=== PATIENT | male | born 1955 | race Caucasian/White ===

== ENCOUNTER 2017-07-02 18:09 | Inpatient (IN) | payer OTHER ==
[~2017-07-02] VITALS: Ht 185.4 cm; Wt 161.0 kg
[~2017-07-02 18:09] MED LIST: ALBU18HF2 IH; ASPI81TA2 PO; ATOR10TA PO; DIGO125T PO; DILT60TA19 PO; HYDR-3326 PO; IPRA12.9 IH; METF500T7 PO; METO25TA3 PO; RIVA10TA PO; TRAM50TA2 PO
--- NOTE | 2017-07-02 18:15 | NUR ---
C/O CHEST PAIN WITH SOB X 1 HOUR; ACHING, PIERCING PAIN 5/10, NAD NOTED, VSS, RESP EVEN AND UNLABORED. PUT ON MONITOR, WAITING FOR MD GROVER.
[2017-07-02 18:46] LABS: BASOPHILS # (AUTO) 0.4 /CMM (0.0-0.2); BASOPHILS % (AUTO) 4.2 % (0.0-2.0); EOSINOPHILS # (AUTO) 0.1 /CMM (0.0-0.7); EOSINOPHILS % (AUTO) 0.6 % (0.0-6.0); HEMATOCRIT 43 % (39-51); HEMOGLOBIN 14.1 g/dL (13.5-17.5); LYMPHOCYTES # (AUTO) 2.3 /CMM (0.8-4.8); LYMPHOCYTES % (AUTO) 22.9 % (20.0-44.0); MEAN CORPUSCULAR HEMOGLOBIN 30 PG (26.0-33.0); MEAN CORPUSCULAR HGB CONC 33 g/dl (31.0-36.0); MEAN CORPUSCULAR VOLUME 92 fL (80-96); MONOCYTES # (AUTO) 0.8 /CMM (0.1-1.30); MONOCYTES % (AUTO) 7.9 % (2.0-12.0); NEUTROPHILS # (AUTO) 6.6 /CMM (1.8-8.9); NEUTROPHILS % (AUTO) 64.4 % (43.0-81.0); PLATELET COUNT (AUTO) 260 /CMM (150-450); RDW COEFFICIENT OF VARIATION 13.6 (11.5-15.0); RED BLOOD CELL COUNT(AUTO) 4.72 MIL/uL (4.5-6.0); WHITE BLOOD COUNT (AUTO) 10.2 K/uL (4.3-11.0)
[2017-07-02 18:57] LABS: CALCIUM, SERUM 7.6 mg/dL (8.5-10.1); CARBON DIOXIDE 23 mmol/L (21-32); CHLORIDE 106 mmol/L (98-107); GLUCOSE 167 mg/dL (74-106); POTASSIUM 4.2 mmol/L (3.5-5.1); SODIUM SERUM 139 mmol/L (136-145); UREA NITROGEN, BLOOD 17 mg/dL (7-18)
[2017-07-02 19:05] LABS: TROPONIN I < 0.017 ng/mL (0.00-0.056)
[2017-07-02 19:10] LABS: B-TYPE NATRIURETIC PEPTIDE 1023 PG/ML (0-125)
--- NOTE | 2017-07-02 19:16 | NUR ---
ASSUMED CARE. PT ASLEEP, NO ACUTE DISTRESS NOTED, RESP EVEN AND UNLABORED. NO PAIN OR DISCOMFORT NOTED AT THIS TIME. PT ON CARDIAC MONITORING, CONTINUOUS POX. PENDING LAB RESULTS.
[2017-07-02 19:49] LABS: BAND % (MANUAL) 17 % (0.0-5.0); BASOPHILS % (MANUAL) 3 % (0.0-2.0); LYMPHOCYTES % (MANUAL) 21 % (16-48); MONOCYTES % (MANUAL) 9 % (0-11.0); NEUTROPHILS % (MANUAL) 50 (42-76)
[2017-07-02 20:00] VITALS: BP 148/81
--- NOTE | 2017-07-02 20:10 | NUR ---
TELE 117
[2017-07-02] MEDS ORDERED: DILTIAZEM HCL 25 MG IV ONE (20:21)
[2017-07-02] MEDS ORDERED: DILTIAZEM HCL 50 MG IV IV ONE (20:30)
--- NOTE | 2017-07-02 20:32 | NUR ---
PT AGITATED, VERBALLY ABUSIVE, KNOCKED OVER PAINTING TECHNICIAN. ASSISTED PT BACK TO BED, PLACED PT BACK ON CARDIAC MONITORING, CONTINUOUS POX. ER MD MADE AWARE.
--- NOTE | 2017-07-02 20:37 | NUR ---
ER TALKING TO DR. RAS MCALLISTER REGARDING PT ADMISSION.
[2017-07-02] MEDS ORDERED: HYDROCODONE/APAP 5/325MG 1 EACH TABLET PO PRN (21:00)
[2017-07-02] MEDS ORDERED: MAGNESIUM HYDROXIDE 30 ML UDC PO PRN ×2 (21:00→21:45)
[2017-07-02] MEDS ORDERED: MAG HYDROX/AL HYDROX/SIMETH 30 ML UDC PO PRN ×2 (21:00→21:45)
[2017-07-02] MEDS ORDERED: ALBUTEROL SULFATE 8 GM HFA.AER.AD IH PRN ×2 (21:00→21:45)
[2017-07-02] MEDS ORDERED: IPRATROPIUM BROMIDE 14 GM INHALER (or 12.9 GM) IH PRN ×2 (21:00→21:45)
[2017-07-02] MEDS ORDERED: ACETAMINOPHEN 325 MG TABLET PO PRN ×2 (21:00→21:45)
[2017-07-02] MEDS ORDERED: TRAMADOL HCL 50 MG TABLET PO PRN (21:00)
[2017-07-02] MEDS ORDERED: Z GUARD REMEDY 2 OZ OINT TP PRN ×2 (21:00→21:45)
[2017-07-02] MEDS ORDERED: ZOLPIDEM TARTRATE 5 MG TABLET PO PRN (21:00)
[2017-07-02] MEDS ORDERED: ONDANSETRON HCL/PF 4 MG/2 ML VIAL IVP PRN ×2 (21:00→21:45)
[2017-07-02] MEDS ORDERED: ENOXAPARIN SODIUM 40 MG/0.4 ML DISP.SYRIN SQ SCH ×2 (21:00→21:45)
--- NOTE | 2017-07-02 21:30 | NUR ---
CALLED DR. ABAD, ON THE PHONE WITH DR MCNEAL
--- NOTE | 2017-07-02 21:34 | NUR ---
REPORT CALLED TO DISTRICT MANAGER MAJOR ACCOUNTS SALESANATOLIY KUMAR. WILL TRANSPORT PT VIA [facility] [employer].
--- NOTE | 2017-07-02 21:45 | NUR ---
MANAGER STORAGE INITIAL NOTE [facility] PT AMBULATED TO BED SAFELY. A/O X3 AND ABLE TO MAKE NEEDS KNOWN. ON 2L OF O2 VIA NC AND SATURATING 99%. VS- BP 148/81, P 109, R 22, T 99.0 AND NO C/O CHEST PAIN OR DISCOMFORT AT THIS TIME. BREATHING REGULAR, EVEN AND UNLABORED. HEART, LUNG AND BOWEL SOUNDS AUSCULTATED. ORIENTED PT TO ROOM. CALL LIGHT WITHIN REACH AT ALL TIMES. AWAITING ORDERS FROM MD. WILL CONTINUE TO MONITOR.
[2017-07-02 22:40] VITALS: BP 148/88
[2017-07-02] MEDS ORDERED: ENOXAPARIN SODIUM 40 MG/0.4 ML DISP.SYRIN SQ ONE (23:06)
[2017-07-02] MEDS ORDERED: FUROSEMIDE 40 MG/4 ML VIAL ONE (23:07)
[2017-07-02] MEDS ORDERED: HYDROCODONE/APAP 5/325MG 1 EACH TABLET ONE (23:07)
[2017-07-02] MEDS: FUROSEMIDE 40 MG/4 ML VIAL IV SCH (23:14)
[2017-07-02] MEDS: HYDROCODONE/APAP 5/325MG 1 EACH TABLET PO PRN (23:14)
[2017-07-03] VITALS: BP 158/94
[2017-07-03] MEDS ORDERED: FUROSEMIDE 40 MG/4 ML VIAL IV SCH
[2017-07-03] MEDS ORDERED: TRAMADOL HCL 50 MG TABLET ONE (00:57)
[2017-07-03] MEDS ORDERED: ZOLPIDEM TARTRATE 5 MG TABLET ONE (00:57)
[2017-07-03] MEDS: ZOLPIDEM TARTRATE 5 MG TABLET PO PRN (00:58)
[2017-07-03] MEDS: TRAMADOL HCL 50 MG TABLET PO PRN ×3 (00:59→20:04)
--- NOTE | 2017-07-03 02:11 | NUR ---
PHOTOGRAPHER MODEL NOTE VERBAL ORDER FROM DR. MCGINNIS FOR LABS, ECG AND DIET. ORDERS READ BACK AND CARRIED OUT.
[2017-07-03 04:00] VITALS: BP 127/64
[2017-07-03] MEDS ORDERED: FUROSEMIDE 40 MG/4 ML VIAL ONE ×2 (05:26→05:27)
[2017-07-03] MEDS ORDERED: HYDROCODONE/APAP 5/325MG 1 EACH TABLET ONE (05:26)
--- NOTE | 2017-07-03 05:29 | NUR ---
RN NOTES FUROSEMIDE OVERRIDE PERFORMED X2 DUE TO FAILED 1ST ATTEMPT. WHEN 1ST OVERRIDE WAS PERFORMED, MEDICATION DOOR LOCKED AND WOULD NOT REOPEN SO ANOTHER OVERRIDE WAS PERFORMED, 1 VIAL TAKEN.
[2017-07-03] MEDS: FUROSEMIDE 40 MG/4 ML VIAL IV SCH ×3 (05:38→17:04)
[2017-07-03] MEDS: HYDROCODONE/APAP 5/325MG 1 EACH TABLET PO PRN ×3 (05:38→22:21)
--- NOTE | 2017-07-03 06:55 | NUR ---
SENIOR NET SOFTWARE DEVELOPER CLOSING NOTE PT REMAINED STABLE DURING SHIFT. NO ACUTE DISTRESS NOTED. ON ROOM AIR AND SATURATING WELL. C/O CHEST PAIN AT TIMES AND MANAGED WITH PAIN MEDICATIONS. KEPT CLEAN AND DRY. PER PT REQUEST, ATTACHED A CONDOM CATHETER TO PREVENT SOILING OF BED. ALL DUE MEDS GIVEN ORDERED AND WELL TOLERATED. CALL LIGHT WITHIN REACH AT ALL TIMES. WILL ENDORSE TO NEXT SHIFT CONTINUITY OF CARE.
[2017-07-03 07:01] LABS: BASOPHILS # (AUTO) 0.1 /CMM (0.0-0.2); BASOPHILS % (AUTO) 0.8 % (0.0-2.0); EOSINOPHILS # (AUTO) 0.2 /CMM (0.0-0.7); EOSINOPHILS % (AUTO) 1.6 % (0.0-6.0); HEMATOCRIT 43 % (39-51); HEMOGLOBIN 14.8 g/dL (13.5-17.5); LYMPHOCYTES # (AUTO) 1.4 /CMM (0.8-4.8); LYMPHOCYTES % (AUTO) 14.7 % (20.0-44.0); MEAN CORPUSCULAR HEMOGLOBIN 31 PG (26.0-33.0); MEAN CORPUSCULAR HGB CONC 34 g/dl (31.0-36.0); MEAN CORPUSCULAR VOLUME 91 fL (80-96); MONOCYTES # (AUTO) 0.7 /CMM (0.1-1.30); MONOCYTES % (AUTO) 7.7 % (2.0-12.0); NEUTROPHILS # (AUTO) 7.2 /CMM (1.8-8.9); NEUTROPHILS % (AUTO) 75.2 % (43.0-81.0); PLATELET COUNT (AUTO) 206 /CMM (150-450); RED BLOOD CELL COUNT(AUTO) 4.75 MIL/uL (4.5-6.0); WHITE BLOOD COUNT (AUTO) 9.6 K/uL (4.3-11.0)
[2017-07-03 07:20] LABS: CALCIUM, SERUM 8.1 mg/dL (8.5-10.1); CREATININE 0.9 mg/dL (0.6-1.3); MAGNESIUM 1.6 mg/dL (1.8-2.4); PHOSPHORUS 2.1 mg/dL (2.5-4.9); POTASSIUM 3.4 mmol/L (3.5-5.1)
[2017-07-03] MEDS ORDERED: PANTOPRAZOLE 40 MG TABLET.DR PO SCH (07:30)
[2017-07-03 07:31] LABS: THYROID STIMULATING HORMONE 1.594 uIU/mL (0.358-3.74)
[2017-07-03 08:00] VITALS: BP 147/78
--- NOTE | 2017-07-03 08:20 | NUR ---
RN NOTES PT SAID HIS CONDOM CATH WAS OUT, WENT TO CHECK, CONDOM CATH NOT IN PLACE. PT REFUSED SNEED CATH. PT EDUCATION PROVIDED. PT INFORMED OUTPUT NEEDS TO BE MONITORED SINCE HE IS ON DIURETICS. PT STILL REFUSED FC AND WANTS CONDOM CATH. PLACED A NEW CONDOM CATH, ADVISED PT TO AVOID SUDDEN MOVEMENT SO CATHETER WILL NOT COME OFF. PT VERBALIZED UNDERSTANDING
[2017-07-03] MEDS: PANTOPRAZOLE 40 MG TABLET.DR PO SCH (08:37)
[2017-07-03] MEDS ORDERED: METFORMIN XR 500 MG TAB.SR.24H PO SCH (09:00)
[2017-07-03] MEDS ORDERED: DIGOXIN 0.125 MG TABLET PO SCH ×2 (09:00)
[2017-07-03] MEDS ORDERED: ASPIRIN 81 MG TAB.CHEW PO SCH ×2 (09:00)
--- NOTE | 2017-07-03 10:25 | NUR ---
RN NOTES DR GONZALEZ AT BEDSIDE, PT WAS SEEN AND EVALUATED. MD INFORMED PT HR IS A FIB UNCONTROLLED 130'S RIGHT NOW, PER MD PT WILL BE STARTED ON CARDIZEM PO. ALSO PT NOTED CONDOM CATH PULLED OUT AGAIN, PER MD NO NEED TO REINSERT. PT CAN USE URINAL.
[2017-07-03] MEDS: Magnesium 1GM/D5W 100ML PREMIX 100 ML IV SCH ×2 (11:40→13:04)
[2017-07-03 12:00] VITALS: BP 169/97
[2017-07-03] MEDS ORDERED: METF10002 PO (12:59)
[2017-07-03] MEDS ORDERED: NEUTRA PHOS 1 POWD.PACKET PO ONE (13:00)
[2017-07-03] MEDS ORDERED: Magnesium 1GM/D5W 100ML PREMIX 100 ML IV ONE (13:02)
[2017-07-03] MEDS: POTASSIUM CL. PREMIX PERIPHER. 50 ML IV SCH ×2 (13:04→14:14)
[2017-07-03] MEDS ORDERED: APIX5TAB PO (14:59)
[2017-07-03 16:00] VITALS: BP 139/80
[2017-07-03] MEDS ORDERED: DIGOXIN 0.125 MG TABLET PO ONE (16:49)
[2017-07-03] MEDS ORDERED: METFORMIN 500 MG TABLET PO SCH (17:00)
[2017-07-03] MEDS ORDERED: RIVAROXABAN 10 MG TABLET PO SCH ×2 (17:00)
[2017-07-03] MEDS: ATORVASTATIN 10 MG TABLET PO SCH (17:04)
[2017-07-03] MEDS: APIXABAN 5 MG TABLET PO SCH (17:04)
[2017-07-03] MEDS ORDERED: ATORVASTATIN 10 MG TABLET PO SCH (18:00)
--- NOTE | 2017-07-03 19:35 | NUR ---
RN NOTES RECEIVED PT AWAKE SITTING ON BED. 10X4 ABLE TO VERBALIZED NEEDS. NO ACUTE RESP DISTRESS. SATING 98% IN RA. A- FIB UNCONTROLLED HR 120'S WARMTH TO TOUCH. AFEBRILE. ASKING FOR PAIN MEDICINE DUE TO CHEST PAIN AT SCALE OF 6/10 PER PATIENT HE GOT PAIN MEDICINE 4 HOURS AGO PAIN DECREASED BUT HE STILL FEELS IT. IV SITE ON LEFT HAND G 20 INTACT AND PATENT. EDUCATED REGARDING PLAN OF CARE. PT VERBALIZED UNDERSTANDING. PT CONTINUE TO ENCOURAGED TO USED URINAL FOR BLADDER. PT AMBULATES. CALL LIGHT KEPT WITHIN EASY REACH REINSTRUCTED TO USED WHEN NEEDED. ALL NEEDS ATTENDED. WILL MONITORED FREQUENTLY.
[2017-07-03] MEDS: IPRATROPIUM NEB FS 0.5 MG/2.5 ML AMPUL.NEB NEB PRN (20:17)
[2017-07-03] MEDS: CARVEDILOL 6.25 MG TABLET PO SCH (20:44)
[2017-07-03 20:56] VITALS: BP 142/100
[2017-07-04] VITALS: BP 143/78
[2017-07-04] MEDS: FUROSEMIDE 40 MG/4 ML VIAL IV SCH ×4 (00:12→16:24)
[2017-07-04] MEDS: TRAMADOL HCL 50 MG TABLET PO PRN ×3 (02:03→16:22)
[2017-07-04 04:00] VITALS: BP 143/78
[2017-07-04] MEDS ORDERED: DIGOXIN 0.125 MG TABLET PO ONE ×2 (06:00)
--- NOTE | 2017-07-04 06:29 | NUR ---
RN NOTES PATIENT MAINTAINED WITH ADEQUATE AMOUNT OF OUTPUT. NO SIGNIFICANT CHANGE OF CONDITION THROUGHOUT THE SHIFT. PAIN MEDICINE GIVEN PATIENT REQUEST DUE TO EPISODE OF CHEST PAIN WHEN AWAKE. NOTED PATIENT SWEATING A LOT THAT CAUSING TELE MONITOR LEADS TO REMOVE MORE OFTEN.BS 144 MG/DL. ALL NEEDS ATTENDED. ALL DUE MEDICINE TOLERATED WELL. KEPT CLEAN AND DRY WILL ENDORSED CONTINUITY OF CARE TO AM NURSE.
--- NOTE | 2017-07-04 07:20 | NUR ---
RN NOTES RECV'D REPORT FROM KEVIN RN. PT A&OX3. SITTING AT SIDE OF BED DRINKING WATER. NORMAL RESP. APPEARS CALM AND RELAXED. HOSPITALIZED 07/02 FOR SOB AND CP SECONDARY TO CHF X 10 YRS. BNP >1000 ON ADM NOW 900'S. AFIB ONE TEENS. XARELTO. DR. SILVA CARDIO CONSULT. DIG, COREG. CM PLACEMENT. DENIES CP AT PRESENT. KEVIN RN HAD GIVEN PAIN MEDS. TROPS NEG. COPD HX. OBESE. AMBULATORY. GOOD APPETITE. VOIDS. SKIN INTACT. LH20G SL. BED IN LOW LOCKED POISTION. SIDE RAILS UP X2. CALL LIGHT IN REACH. WILL CONT TO MONITOR.
[2017-07-04 07:43] LABS: CALCIUM, SERUM 8.2 mg/dL (8.5-10.1); PHOSPHORUS 3.6 mg/dL (2.5-4.9); POTASSIUM 3.6 mmol/L (3.5-5.1)
[2017-07-04 08:00] VITALS: BP 130/95
[2017-07-04] MEDS: PANTOPRAZOLE 40 MG TABLET.DR PO SCH (08:14)
[2017-07-04] MEDS: APIXABAN 5 MG TABLET PO SCH ×2 (08:14→16:22)
[2017-07-04] MEDS: CARVEDILOL 6.25 MG TABLET PO SCH ×2 (08:14→21:01)
[2017-07-04] MEDS: IPRATROPIUM NEB FS 0.5 MG/2.5 ML AMPUL.NEB NEB PRN ×3 (08:50→22:25)
[2017-07-04 12:00] VITALS: BP 128/82
[2017-07-04] MEDS: HYDROCODONE/APAP 5/325MG 1 EACH TABLET PO PRN ×2 (12:55→21:01)
[2017-07-04] MEDS: SENNOSIDES/DOCUSATE SODIUM 1 TAB TABLET PO SCH (13:01)
[2017-07-04 16:00] VITALS: BP 142/92
[2017-07-04] MEDS: ATORVASTATIN 10 MG TABLET PO SCH (16:23)
[2017-07-04] MEDS: ALBUTEROL FS 2.5 MG/3 ML VIAL.NEB NEB PRN ×2 (17:04→22:25)
--- NOTE | 2017-07-04 17:54 | NUR ---
RN NOTES PT A&OX3. HOB ELEVATED. NORMAL RESP 3LNC. APPEARS CALM AND RELAXED. AFIB 80-100. ELIQUIS. DR. SILVA CARDIO CONSULT. DIG, COREG. CM PLACEMENT. DENIES CP AT PRESENT. PAIN MEDS GIVEN FOR 5/10 LEFT CHEST WALL PAIN. TROPS NEG. RT TX FOR COPD. AMBULATORY. GOOD APPETITE. VOIDS. SKIN INTACT. LH20G SL. 1100 OUT/ 500 IN. BED IN LOW LOCKED POSITION. SIDE RAILS UP X2. CALL LIGHT IN REACH. WILL CONT TO MONITOR AND ENDORSE TO NOC RN.
--- NOTE | 2017-07-04 19:15 | NUR ---
RN NOTES PATIENT AWAKE AOX4 ON BED. ABLE TO MAKE KNOWN NEEDS. WITH CLEAR BREATH SOUNDS. BREATHING EVEN AND UNLABORED WITH O2 3LPM VIA NC. TELE MONITOR REVEALS A- FIB HR 97. DENIES CHEST PAIN AT THIS TIME. IV SITE ON LEFT HAND G20 INTACT AND PATENT. AMBULATORY. PER PREVIOUS NURSE TO TRANSFER PATIENT TO ISOLATION ROOM DUE TO POSITIVE FOR MRSA NARES. PATIENT WILL BE TRANSFER TO ROOM 103. PATIENT MADE AWARE EDUCATED REGARDING THE INFECTION. ABLE TO USED URINAL. KEPT CLEAN AND DRY ALL NEEDS ATTENDED CALL LIGHT KEPT WITHIN EASY REACH REMINDED TO USED WHEN NEED HELP/ASSISTANCE. WILL CONTINUE TO MONITOR.
[2017-07-04 20:00] VITALS: BP 120/83
--- NOTE | 2017-07-04 22:00 | NUR ---
RN NOTES TRANSFER PATIENT FROM ROOM 117-2 TO ROOM 103
[2017-07-05] VITALS: BP 134/74
[2017-07-05 04:00] VITALS: BP 116/71
[2017-07-05] MEDS: HYDROCODONE/APAP 5/325MG 1 EACH TABLET PO PRN ×2 (05:49→11:55)
--- NOTE | 2017-07-05 06:42 | NUR ---
RN NOTES PATIENT IN STABLE CONDITION NO COMPLAIN OF CHEST PAIN. NO ACUTE RESP DISTRESS. AFEBRILE. TELE MONITOR REVEALS A-FIB CONTROLLED LAST HR 71. IV SITE INTACT AND PATENT. AMBULATE WITHOUT SOB . WITH GOOD AMOUNT URINE OUTPUT. PT ASLEEP WELL AT NIGHT. KEPT PT CLEAN AND COMFORTABLE IN BED. CALL LIGHT KEPT WITHIN EASY REACH. NEEDS ATTENDED PROMPTLY. WILL ENDORSED CONTINUITY OF CARE TO AM NURSE.
[2017-07-05 06:47] LABS: HEMOGLOBIN 14.9 g/dL (13.5-17.5); RED BLOOD CELL COUNT(AUTO) 4.82 MIL/uL (4.5-6.0); WHITE BLOOD COUNT (AUTO) 7.7 K/uL (4.3-11.0)
[2017-07-05 06:48] LABS: BASOPHILS % (AUTO) 0.5 % (0.0-2.0); EOSINOPHILS # (AUTO) 0.4 /CMM (0.0-0.7); EOSINOPHILS % (AUTO) 5.3 % (0.0-6.0); HEMATOCRIT 44 % (39-51); LYMPHOCYTES # (AUTO) 1.4 /CMM (0.8-4.8); LYMPHOCYTES % (AUTO) 18.7 % (20.0-44.0); MEAN CORPUSCULAR HEMOGLOBIN 31 PG (26.0-33.0); MEAN CORPUSCULAR HGB CONC 34 g/dl (31.0-36.0); MEAN CORPUSCULAR VOLUME 91 fL (80-96); MONOCYTES # (AUTO) 0.5 /CMM (0.1-1.30); MONOCYTES % (AUTO) 6.1 % (2.0-12.0); NEUTROPHILS # (AUTO) 5.4 /CMM (1.8-8.9); NEUTROPHILS % (AUTO) 69.4 % (43.0-81.0); PLATELET COUNT (AUTO) 182 /CMM (150-450); RDW COEFFICIENT OF VARIATION 14.1 (11.5-15.0)
[2017-07-05 06:56] LABS: CALCIUM, SERUM 8.6 mg/dL (8.5-10.1); MAGNESIUM 1.8 mg/dL (1.8-2.4); PHOSPHORUS 4.5 mg/dL (2.5-4.9); POTASSIUM 3.5 mmol/L (3.5-5.1)
[2017-07-05 08:00] VITALS: BP 104/67
[2017-07-05] MEDS: IPRATROPIUM NEB FS 0.5 MG/2.5 ML AMPUL.NEB NEB PRN ×2 (08:35→15:43)
[2017-07-05] MEDS: ALBUTEROL FS 2.5 MG/3 ML VIAL.NEB NEB PRN ×2 (08:35→15:43)
[2017-07-05] MEDS: PANTOPRAZOLE 40 MG TABLET.DR PO SCH (08:47)
[2017-07-05] MEDS: FUROSEMIDE 40 MG/4 ML VIAL IV SCH ×2 (08:48→16:37)
[2017-07-05] MEDS: SENNOSIDES/DOCUSATE SODIUM 1 TAB TABLET PO SCH (08:49)
[2017-07-05] MEDS: CARVEDILOL 6.25 MG TABLET PO SCH ×2 (08:49→20:15)
[2017-07-05] MEDS: TRAMADOL HCL 50 MG TABLET PO PRN (08:52)
[2017-07-05] MEDS: APIXABAN 5 MG TABLET PO SCH ×2 (09:01→16:37)
[2017-07-05 12:00] VITALS: BP 132/80
[2017-07-05] MEDS: DIGOXIN 0.125 MG TABLET PO SCH (14:17)
[2017-07-05 16:00] VITALS: BP 118/72
[2017-07-05] MEDS: ATORVASTATIN 10 MG TABLET PO SCH (16:37)
--- NOTE | 2017-07-05 19:05 | NUR ---
RN OPENING NOTES RECEIVED REPORT FROM AM RN. PATIENT A/A/O X4, ABLE TO MAKE NEEDS KNOWN. BREATHING EVEN & UNLABORED, ON O2 3L VIA NC. DENIES SOB OR DIFFICULTY BREATHING. PULSES PRESENT. LEFT HAND IV #20 PATENT W/ DRESSING CDI & ON SALINE LOCK. DENIES ANY CHEST PAIN OR DISCOMFORT @ THIS TIME. SAFETY MEASURES IN PLACE W/ SIDE RAILS UP, BED LOCKED IN LOWEST POSITION & CALL LIGHT WITHIN REACH.
[2017-07-05 20:00] VITALS: BP 111/60
[2017-07-05] MEDS: MUPIROCIN OINT 2% 22 GM TUBE SCH (20:14)
[2017-07-06] MEDS: HYDROCODONE/APAP 5/325MG 1 EACH TABLET PO PRN ×4 (00:53→22:23)
[2017-07-06] MEDS: ZOLPIDEM TARTRATE 5 MG TABLET PO PRN (03:20)
[2017-07-06 04:00] VITALS: BP 143/90
--- NOTE | 2017-07-06 07:15 | NUR ---
MS RN OPENING RECEIVED PATIENT A/OX4 DENIES SOB, DIFFICULTY BREATHING OR PAIN AT THIS TIME. ALL NEEDS IN REACH. PATIENT ON 3LPM NC TOLERATING WELL. NO COMPLAINTS AT THIS TIME. CALL LIGHT IN REACH, BED LOWERED AND LOCKED, RAILS UPX3 FOR SAFETY AND WILL ROUND Q2H OR LESS PER NEEDS
[2017-07-06 07:21] LABS: BASOPHILS # (AUTO) 0.1 /CMM (0.0-0.2); BASOPHILS % (AUTO) 0.7 % (0.0-2.0); EOSINOPHILS # (AUTO) 0.5 /CMM (0.0-0.7); HEMATOCRIT 46 % (39-51); HEMOGLOBIN 15.5 g/dL (13.5-17.5); LYMPHOCYTES # (AUTO) 1.6 /CMM (0.8-4.8); LYMPHOCYTES % (AUTO) 17.4 % (20.0-44.0); MEAN CORPUSCULAR HEMOGLOBIN 31 PG (26.0-33.0); MEAN CORPUSCULAR HGB CONC 34 g/dl (31.0-36.0); MEAN CORPUSCULAR VOLUME 91 fL (80-96); MONOCYTES # (AUTO) 0.7 /CMM (0.1-1.30); NEUTROPHILS # (AUTO) 6.3 /CMM (1.8-8.9); NEUTROPHILS % (AUTO) 68.9 % (43.0-81.0); PLATELET COUNT (AUTO) 192 /CMM (150-450); RDW COEFFICIENT OF VARIATION 14.2 (11.5-15.0); RED BLOOD CELL COUNT(AUTO) 5.03 MIL/uL (4.5-6.0); WHITE BLOOD COUNT (AUTO) 9.2 K/uL (4.3-11.0)
[2017-07-06 07:32] LABS: CALCIUM, SERUM 8.9 mg/dL (8.5-10.1); CREATININE 1.1 mg/dL (0.6-1.3); MAGNESIUM 1.8 mg/dL (1.8-2.4); PHOSPHORUS 3.7 mg/dL (2.5-4.9); POTASSIUM 3.5 mmol/L (3.5-5.1)
[2017-07-06 08:00] VITALS: BP 141/89
[2017-07-06] MEDS: APIXABAN 5 MG TABLET PO SCH ×2 (09:23→16:17)
[2017-07-06] MEDS: FUROSEMIDE 40 MG/4 ML VIAL IV SCH ×2 (09:23→16:17)
[2017-07-06] MEDS: SENNOSIDES/DOCUSATE SODIUM 1 TAB TABLET PO SCH (09:23)
[2017-07-06] MEDS: CARVEDILOL 6.25 MG TABLET PO SCH ×2 (09:23→20:56)
[2017-07-06] MEDS: MUPIROCIN OINT 2% 22 GM TUBE SCH ×2 (09:24→21:08)
[2017-07-06] MEDS: PANTOPRAZOLE 40 MG TABLET.DR PO SCH (09:24)
[2017-07-06] MEDS: DIGOXIN 0.125 MG TABLET PO SCH (12:36)
[2017-07-06 16:00] VITALS: BP_SYST 143; BP_SYST 144; BP_DIAS 77
--- NOTE | 2017-07-06 16:19 | NUR ---
manager union Sea informed OSVALDO that pt. will be discharged today. Pt. stated he will go to a motel. OSVALDO gave pt. the following resources: List of Homeless shelters, food chaves and list of [employer]. of Public Social service offices of [facility].
[2017-07-06] MEDS: ATORVASTATIN 10 MG TABLET PO SCH (17:33)
--- NOTE | 2017-07-06 18:37 | NUR ---
MS RN CLOSING PATIENT STABLE NO COMPLICATIONS NO CHANGES. ALL DUE MEDS GIVEN ALL NEEDS MET. PAIN CONTROLLED WITH PRN MEDICATIONS AND NON PHARM MEASURES. ALL NEEDS IN REACH. CARE WILL BE ENDORSED TO RN FOR BERTHA
[2017-07-06] MEDS: TRAMADOL HCL 50 MG TABLET PO PRN (18:59)
[2017-07-06 20:00] VITALS: BP 102/66
[2017-07-07 03:59] VITALS: BP 127/75
--- NOTE | 2017-07-07 06:30 | NUR ---
END OF SHIFT SUMMERY: PT IS A&O X 4. IN A STABLE CONDITION. COMPLAINED OF CHRONIC PAIN THAT IS RELIEVED WITH NORCO PRESCRIBED. . NO EPISODES OF N/V. NO ACUTE RESPIRATORY/CARDIAC DISTRESS NOTED. WILL CONTINUE TO MONITOR AND ENDORSE PATIENT TO NEXT NURSE TO CONTINUE THE CARE.
[2017-07-07 06:31] LABS: BASOPHILS % (AUTO) 0.5 % (0.0-2.0); EOSINOPHILS # (AUTO) 0.4 /CMM (0.0-0.7); EOSINOPHILS % (AUTO) 4.1 % (0.0-6.0); HEMATOCRIT 49 % (39-51); HEMOGLOBIN 16.2 g/dL (13.5-17.5); LYMPHOCYTES # (AUTO) 1.6 /CMM (0.8-4.8); LYMPHOCYTES % (AUTO) 16.6 % (20.0-44.0); MEAN CORPUSCULAR HEMOGLOBIN 31 PG (26.0-33.0); MEAN CORPUSCULAR HGB CONC 33 g/dl (31.0-36.0); MEAN CORPUSCULAR VOLUME 92 fL (80-96); MONOCYTES # (AUTO) 0.6 /CMM (0.1-1.30); MONOCYTES % (AUTO) 6.3 % (2.0-12.0); NEUTROPHILS # (AUTO) 7.2 /CMM (1.8-8.9); NEUTROPHILS % (AUTO) 72.5 % (43.0-81.0); PLATELET COUNT (AUTO) 218 /CMM (150-450); RDW COEFFICIENT OF VARIATION 13.9 (11.5-15.0); WHITE BLOOD COUNT (AUTO) 9.9 K/uL (4.3-11.0)
[2017-07-07 06:59] LABS: CALCIUM, SERUM 9.1 mg/dL (8.5-10.1); CREATININE 1.2 mg/dL (0.6-1.3); MAGNESIUM 1.9 mg/dL (1.8-2.4); PHOSPHORUS 4.1 mg/dL (2.5-4.9); POTASSIUM 4.1 mmol/L (3.5-5.1)
[2017-07-07 08:00] VITALS: BP 120/84
--- NOTE | 2017-07-07 08:04 | NUR ---
RN OPENING NOTES RECEIVED PATIENT RESTING COMFORTABLY IN BED. PATIENT IS EASILY AROUSABLE. PATIENT IS AOX4. COMPLAINING OF BACK PAIN 5/10 AND CP 3/10. WILL CONTINUE TO MONITOR AND IMPLEMENT APPROPRIATE INTERVENTIONS. NO ACUTE DISTRESS NOTED. RESPIRATIONS EVEN AND UNLABORED. DENIES SOB AT THIS TIME. IV ACCESS ON THE LEFT HAND 20 G SL. IV PATENT AND INTACT. BED LOCKED IN THE LOWEST POSITION WITH SIDE RAILS UPX2. CALL LIGHT WITHIN REACH. WILL CONTINUE TO MONITOR, ASSESS AND EDUCATE PATIENT THROUGHOUT SHIFT.
[2017-07-07] MEDS: PANTOPRAZOLE 40 MG TABLET.DR PO SCH (09:18)
[2017-07-07] MEDS: FUROSEMIDE 40 MG TABLET PO SCH (09:18)
[2017-07-07] MEDS: HYDROCODONE/APAP 5/325MG 1 EACH TABLET PO PRN ×2 (09:18→18:25)
[2017-07-07] MEDS: SENNOSIDES/DOCUSATE SODIUM 1 TAB TABLET PO SCH (09:18)
[2017-07-07] MEDS: APIXABAN 5 MG TABLET PO SCH ×2 (09:19→18:22)
[2017-07-07] MEDS: CARVEDILOL 6.25 MG TABLET PO SCH ×2 (09:19→20:50)
[2017-07-07] MEDS: MUPIROCIN OINT 2% 22 GM TUBE SCH ×2 (09:20→21:40)
[2017-07-07 12:00] VITALS: BP 130/80
[2017-07-07] MEDS: DIGOXIN 0.125 MG TABLET PO SCH (13:31)
[2017-07-07] MEDS: TRAMADOL HCL 50 MG TABLET PO PRN ×2 (13:33→21:40)
[2017-07-07 16:00] VITALS: BP 137/75
[2017-07-07] MEDS: ATORVASTATIN 10 MG TABLET PO SCH (18:22)
--- NOTE | 2017-07-07 19:20 | NUR ---
RN CLOSING NOTES PATIENT RESTING COMFORTABLY IN BED. PT TO BE D/C'D TO PRISON TOMORROW. PATIENT IS AOX4. COMPLAINING OF MILD LOWER BACK PAIN 01/08 DENIES CP. WILL CONTINUE TO MONITOR AND IMPLEMENT APPROPRIATE INTERVENTIONS. NO ACUTE DISTRESS NOTED. RESPIRATIONS EVEN AND UNLABORED. DENIES SOB. CONDITION REMAINS UNCHANGED. ALL NEEDS MET ALL MEDS GIVEN APPROPRIATE. WILL ENDORSE TO NIGHT RN FOR BERTHA.
[2017-07-07 20:00] VITALS: BP 126/63
[2017-07-08 04:00] VITALS: BP 104/63
--- NOTE | 2017-07-08 06:29 | NUR ---
END OF SHIFT SUMMERY: PT IS A&O X 4. IN A STABLE CONDITION. COMPLAINED OF CHRONIC PAIN THAT IS RELIEVED WITH TRAMADOL 50 MG PRESCRIBED. . NO EPISODES OF N/V. NO ACUTE RESPIRATORY/CARDIAC DISTRESS NOTED. WILL CONTINUE TO MONITOR AND ENDORSE PATIENT TO NEXT NURSE TO CONTINUE THE CARE.
[2017-07-08 08:00] VITALS: BP 127/89
--- NOTE | 2017-07-08 08:00 | NUR ---
MS RN INITIAL NOTES Received patient in bed, awake, head of bed elevated, no SOB or distress noted. Alert and oriented x 3, verbally responsive and able to make needs known. on room air and tolerated well. IV intact and patent. No complaint of pain or discomfort noted. Kept patient clean and comfortable in bed, call light with in patient reach, will continue to monitor accordingly.
[2017-07-08] MEDS: HYDROCODONE/APAP 5/325MG 1 EACH TABLET PO PRN ×2 (09:23→15:17)
[2017-07-08] MEDS: FUROSEMIDE 40 MG TABLET PO SCH (09:23)
[2017-07-08] MEDS: SENNOSIDES/DOCUSATE SODIUM 1 TAB TABLET PO SCH (09:24)
[2017-07-08] MEDS: PANTOPRAZOLE 40 MG TABLET.DR PO SCH (09:24)
[2017-07-08] MEDS: CARVEDILOL 6.25 MG TABLET PO SCH ×2 (09:24→21:00)
[2017-07-08] MEDS: MUPIROCIN OINT 2% 22 GM TUBE SCH ×2 (09:25→21:20)
[2017-07-08] MEDS: APIXABAN 5 MG TABLET PO SCH ×2 (09:27→17:09)
[2017-07-08] MEDS: DIGOXIN 0.125 MG TABLET PO SCH (12:21)
[2017-07-08 16:00] VITALS: BP 129/81
[2017-07-08] MEDS: ATORVASTATIN 10 MG TABLET PO SCH (17:09)
--- NOTE | 2017-07-08 19:12 | NUR ---
ms rn closing notes All needs provided, attended, and anticipated. Kept patient clean and comfortable in bed, call light with in patient reach, will continue to monitor accordingly. Endorsed to next shift RN to continue care.
[2017-07-08 20:00] VITALS: BP 123/83
[2017-07-08] MEDS: ALBUTEROL FS 2.5 MG/3 ML VIAL.NEB NEB PRN (21:03)
[2017-07-08] MEDS: IPRATROPIUM NEB FS 0.5 MG/2.5 ML AMPUL.NEB NEB PRN (21:03)
[2017-07-08] MEDS: TRAMADOL HCL 50 MG TABLET PO PRN (21:21)
[2017-07-09] MEDS: ZOLPIDEM TARTRATE 5 MG TABLET PO PRN (01:24)
--- NOTE | 2017-07-09 06:34 | NUR ---
END OF SHIFT SUMMERY: PT IS A&O X 4. IN A STABLE CONDITION. COMPLAINED OF CHRONIC BACK PAIN THAT IS RELIEVED WITH TRAMADOL 50 MG PRESCRIBED. NO EPISODES OF N/V. NO ACUTE RESPIRATORY/CARDIAC DISTRESS NOTED. WILL CONTINUE TO MONITOR AND ENDORSE PATIENT TO NEXT NURSE TO CONTINUE THE CARE.
--- NOTE | 2017-07-09 07:10 | NUR ---
RN INITIAL NOTES: REC'D PT AWAKE ON BED, NOT IN ANY DISTRESS, A/O X4, ABLE TO MAKE NEEDS KNOWN. PT ON ROOM AIR, NO SOB. HAS L HAND G20, SL, FLUSHED, PATENT & INTACT W/ NO S/SX OF INFECTION OR INFILTRATION NOTED. PROVIDED COMFORT & SAFETY MEASURES. BED KEPT LOW & IN LOCKED POS. CALL LIGHT W/IN REACH. WILL CONTINUE TO MONITOR AND ATTEND NEEDS OF THE PT.
[2017-07-09 08:00] VITALS: BP_SYST 101; BP_SYST 110; BP_DIAS 67
[2017-07-09] MEDS: SENNOSIDES/DOCUSATE SODIUM 1 TAB TABLET PO SCH (08:47)
[2017-07-09] MEDS: APIXABAN 5 MG TABLET PO SCH (08:47)
[2017-07-09] MEDS: PANTOPRAZOLE 40 MG TABLET.DR PO SCH (08:47)
[2017-07-09] MEDS: FUROSEMIDE 40 MG TABLET PO SCH (08:47)
[2017-07-09] MEDS: MUPIROCIN OINT 2% 22 GM TUBE SCH (08:48)
[2017-07-09 08:52] VITALS: BP 110/67
[2017-07-09] MEDS: CARVEDILOL 6.25 MG TABLET PO SCH (08:52)
[2017-07-09] MEDS: HYDROCODONE/APAP 5/325MG 1 EACH TABLET PO PRN (08:52)
[2017-07-09] MEDS ORDERED: CARV12.5 PO (10:17)
[2017-07-09] MEDS ORDERED: POTA10TA PO (10:17)
--- NOTE | 2017-07-09 12:03 | NUR ---
OSVALDO and case advocate Sea met with pt. bedside to discuss discharge plan. Pt. informed SW that he is willing to go to senior care placement since he does not qualify for senior care placement. OSVALDO offered pt. senior care placement for prerna at [facility] located at [address] [place] [address], in [facility] . Pt. accepted to go to the senior care. OSVALDO offered pt. 3 bus tokens and informed pt. she will give them to his nurse. OSVALDO gave pt. [facility] senior care resources and list of food resources for [facility] and the [facility]. Homeless Patient Waiver form was signed by pt. and placed in pt's chart. OSVALDO gave pt's RN three bus tokens to give to pt. upon discharge. No other social service needs are requested at this time.
[2017-07-09] MEDS: DIGOXIN 0.125 MG TABLET PO SCH (12:50)
[2017-07-09] MEDS: TRAMADOL HCL 50 MG TABLET PO PRN (13:56)
--- NOTE | 2017-07-09 14:04 | NUR ---
BLANKET FOLDER NOTES: PT DC'D TO [facility] ORDERED. PT IS A/O X4, ABLE TO MAKE NEEDS KNOWN, NOT IN ANY FORM OF DISTRESS. IV ACCESS REMOVED, APPLIED PRESSURE DRESSING, NO S/SX OF INFECTION NOTED. ESTHELA JENKINS SPOKE W/ PT PRIOR TO DC. DR. SIEGEL SEEN PT BEFORE DC. 3 TOKENS FOR DC PROVIDED TO THE PT INSTRUCTED BY THE SUPERVISOR MACHINING. NO WOUNDS NOTED UPON DC. PT DOESN'T WANT ID BAND TO BE REMOVED. NO CONCERNS EXPRESSED AT THIS TIME. DC INSTRUCTIONS AND DC DOCUMENTS (W/ PRESCRIPTION) PROVIDED TO THE PT. PT IS AMBULATORY W/ STEADY GAIT UPON DC ACCOMPANIED BY SWATCH FOLDER. ALL BELONGINGS SENT WITH PT. BELONGING LIST SIGNED BY PT. Addendum: 07/09/17 at 1519 by JOSE JIMEENS RN ADDENDUM: PT REFUSED TO TAKE PICTURES OF HIS BLE AND GROIN AREA. HE SAID THAT IT'S STILL THE SAME.
== END 2017-07-09 14:03 | disposition home or self-care (01) | DRG 194 ==
LOC: ER 18:10 → TELE1 22:18 → MEDSG1 07-05 20:39
DX: I11.0 Hypertensive heart disease with heart failure (principal); D68.59 Other primary thrombophilia; Z68.42 Body mass index [BMI] 45.0-49.9, adult; E66.01 Morbid (severe) obesity due to excess calories; E44.1 Mild protein-calorie malnutrition; I48.2 Chronic atrial fibrillation; J44.9 Chronic obstructive pulmonary disease, unspecified; I50.33 Acute on chronic diastolic (congestive) heart failure; E11.9 Type 2 diabetes mellitus without complications; E78.5 Hyperlipidemia, unspecified; K59.00 Constipation, unspecified; Z87.891 Personal history of nicotine dependence; I25.10 Atherosclerotic heart disease of native coronary artery without angina pectoris; F31.9 Bipolar disorder, unspecified; Z91.14 Patient's other noncompliance with medication regimen; I35.0 Nonrheumatic aortic (valve) stenosis; Z59.0 Homelessness; Z79.899 Other long term (current) drug therapy
CPT/HCPCS: 36415; 71010-TC; 80048-TC; 80061-TC; 80162-TC; 82962-TC; 83735-TC; 83880; 84100-TC; 84443-TC; 84484-TC; 85025-TC; 87040-TC; 87081-TC; 93307-TC; 94799-TC; A4349; A4606; G0480; J1650; J1940; J3475; J3480; J3490; J7030; Z7610